=== PATIENT | female | born 1985 | race Caucasian/White ===

== ENCOUNTER 2022-02-13 23:01 | Outpatient (CLI) | payer MEDICAID, SELFPAY | END 2022-02-13 23:02 | disposition home or self-care (01) | LOC: AMB 02-24 11:48 | PROVIDERS: PCP Physician Assistant; Visit Provider Family Medicine | DX: S09.93XA Unspecified injury of face, initial encounter (principal); W01.10XA Fall on same level from slipping, tripping and stumbling with subsequent striking against unspecified object, initial encounter; Y92.85 Railroad track as the place of occurrence of the external cause | CPT/HCPCS: A0425; A0429 ==

== ENCOUNTER 2022-02-13 23:17 | Emergency (ER) | payer MEDICAID, SELFPAY ==
[2022-02-13 23:28] VITALS: BP 128/101; PULSE 103; RESP 18; TEMP 36.9; O2SAT 97; BMI 23.8
--- NOTE | 2022-02-13 23:39 | CRLHL7_ITS ---
For Patients: As a result of the Century Cures Act, medical imaging exams and procedure reports are released immediately into your electronic medical record. You may view this report before your referring provider. If you have questions, please contact your health care provider. INDICATION: Fall hit face, facial head injury TECHNIQUE: CT Head without i.v. contrast. Coronal and sagittal reformats were obtained. Portions of the exam was repeated due to patient motion. COMPARISON: None FINDINGS: The sensitivity and specificity of the exam are moderately limited by artifacts from patient motion. A small portion of the vertex was excluded. CSF space: The ventricles are normal for age. Brain: No evidence of mass, acute infarction or hemorrhage is seen. No mass-effect or midline shift is seen. The brain parenchyma is otherwise normal in appearance with preservation of the feliz-white matter junction. Calvarium: The visualized paranasal sinuses are well aerated. The mastoid air cells are clear. The visualized orbits are grossly unremarkable. The calvarium is unremarkable in appearance with no fractures identified. IMPRESSION: 1. No evidence of acute infarction, intracranial hemorrhage, or mass-effect seen. 2. The sensitivity and specificity of the exam are moderately limited by artifacts from patient motion. A small portion of the vertex was excluded. Please note that all CT scans at this facility use dose modulation, iterative reconstruction, and/or weight-based dosing when appropriate to reduce radiation dose to as low as reasonably achievable. Dictated by: Reagan Durham MD @ 02/14/2022 00:42:51 (Electronically Signed)
--- NOTE | 2022-02-13 23:39 | CRLHL7_ITS ---
For Patients: As a result of the Century Cures Act, medical imaging exams and procedure reports are released immediately into your electronic medical record. You may view this report before your referring provider. If you have questions, please contact your health care provider. INDICATION: Fall hit face, facial injury TECHNIQUE: CT maxillofacial without i.v. contrast. Coronal and sagittal reformats were obtained. COMPARISON: None FINDINGS: The sensitivity and specificity of the exam are severely limited by artifacts from patient motion. Bone: There is a mildly depressed fracture present in the anterior wall of the right maxillary sinus. Bilateral nasal bone fractures are present. Evaluation of the nasal septum and mandible are severely degraded by motion artifacts. Joint: The temporomandibular joints are unremarkable in appearance. Sinus: Mild mucosal thickening is present at the base of the right maxillary sinus. Aplasia of the frontal sinus is noted. Remaining paranasal sinuses are unremarkable. The ostiomeatal units are patent. The nasal turbinates are normal. The nasal septum has mild leftward deviation. Orbit: The visualized orbits are grossly unremarkable. Soft tissue: Moderate swelling and subcutaneous hematoma is present over the right malar region. Diffuse swelling over the nose is noted. IMPRESSIONS: 1. Bilateral nasal bone fractures are present. 2. There is a mildly depressed fracture present in the anterior wall of the right maxillary sinus. 3. The sensitivity and specificity of the exam are severely limited by artifacts from patient motion. Dictated by Reagan Durham MD @ 02/14/2022 12:47:18 AM Please note that all CT scans at this facility use dose modulation, iterative reconstruction, and/or weight-based dosing when appropriate to reduce radiation dose to as low as reasonably achievable. Dictated by: Reagan Durham MD @ 02/14/2022 00:47:54 (Electronically Signed)
--- NOTE | 2022-02-13 23:40 | ED_ITS ---
HPI - Fall General Chief Complaint: Fall/Minor Trauma Stated Complaint: Fall, etoh Time Seen by Provider: 02/13/22 23:31 History of Present Illness HPI Narrative: This 36-year-old female comes in because of an injury to her face that occurred just prior to arrival. She is intoxicated with alcohol and was walking near some railroad tracks. She tripped and fell and hit her face on the railroad rail. She states that she did not have loss of consciousness. She has an abrasion on her left knee. She denies having any other injury. She has significant swelling in bleeding from her nostrils. She also has a nose ring in her right nostril that was damaged with this fall. She was able to remove the nose ring while I initially visited her. Related Data Home Medications Medication Instructions Recorded Confirmed No Known Home Medications 02/13/22 02/13/22 Allergies Allergy/AdvReac Type Severity Reaction Status Date / Time No Known Drug Allergies Allergy Verified 02/13/22 23:46 Review of Systems Status of ROS: Reports: 10 or more systems reviewed and unremarkable except as noted in History and below Narrative: Constitutional: No fevers, no weight gain or loss. Eyes: No discharge. No vision changes. HENT: Facial injury. Cardiovascular: No chest pain, no palpitations. Respiratory: No shortness of breath, no wheezes, no cough. Gastrointestinal: No abdominal pain, no vomiting, no diarrhea. Genitourinary: No dysuria, no hematuria. Musculoskeletal: Normal range of motion. Skin: No rashes, no pruritis. Neurological: No dizziness, weakness, sensory change, speech change. Endo/Heme/Allergies: No bruising or bleeding. No polydipsia. Pysch: no suicidality, no anxiety, no insomnia. Intoxicated with alcohol. All other systems reviewed and are negative. Exam Narrative: Exam Narrative: Constitutional: Well-developed, well-nourished, no acute distress. HEENT: Swelling of the nose with residual bright red blood in both nostrils. A nose ring was damaged and still present in the right nostril. Patient was herself able to remove the nose ring. Normal eye movements. No other sign of injury to her head. No injury to her teeth or inside her mouth. Her teeth line up properly. Neck: Normal range of motion. Nontender. Supple. Heart: Regular. No murmurs. Normal rate. Intact distal pulses. Lungs: Clear to auscultation. No chest discomfort. No wheezes, rhonchi, or rales. Abdomen: Normal bowel sounds. Nontender. No rebound tenderness. Genitalia: Deferred. Back: No midline tenderness. Normal range of motion. Extremities: Normal range of motion. No injury. Skin: Intact. No rash. Warm. No erythema or pallor. Many tattoos on her upper extremities. Neurologic: No altered sensation. No weakness. Alert and oriented. Psychiatric: No suicidality. No anxiety or depression. No insomnia. Nursing notes and vitals signs are reviewed. Const: Vital Signs, click to edit/add: Vital Signs - 24 hr 02/13/22 23:28 Temperature 98.4 F Pulse Rate [Left P ulse Oximeter] 103 H Respiratory Rate 18 Blood Pressure [Ri ght Upper Arm] 128/101 H Pulse Oximetry 97 Oxygen Delivery Me thod Room Air Course Vital Signs Vital signs: Initial Vital Signs Temperature 98.4 F 02/13/22 23:28 Temperature Source Temporal Artery Scan 02/13/22 23:28 Pulse Rate 103 H 02/13/22 23:28 Respiratory Rate 18 02/13/22 23:28 Blood Pressure 128/101 H 02/13/22 23:28 Blood Pressure Mean 110 02/13/22 23:28 Blood Pressure Position Supine 02/13/22 23:28 Pulse Oximetry 97 02/13/22 23:28 Oxygen Delivery Method 02/13/22 23:28 Vital Signs Temperature 98.4 F 02/13/22 23:28 Pulse Rate 103 H 02/13/22 23:28 Respiratory Rate 18 02/13/22 23:28 Blood Pressure 128/101 H 02/13/22 23:28 Pulse Oximetry 97 02/13/22 23:28 Oxygen Delivery Method 02/13/22 23:28 Temperature 98.4 F 02/13/22 23:28 Pulse Rate 103 H 02/13/22 23:28 Respiratory Rate 18 02/13/22 23:28 Blood Pressure 128/101 H 02/13/22 23:28 Pulse Oximetry 97 02/13/22 23:28 Oxygen Delivery Method 02/13/22 23:28 MDM - Fall MDM Narrative Medical decision making narrative: This patient is intoxicated with alcohol and fell when attempting across her or tracks. She fell from a standing height and did have loss of consciousness. She has significant swelling and bleeding from her nose. CT scan of the head and facial bones by my review with radiology report pending shows no sign of intracranial abnormality. She does have nondisplaced or minimally displaced fractures of her nose. Her maxillary sinuses are not filled with fluid or blood. There is no evidence of eye entrapment or inferior orbital injury. Imaging Data CT scan - head: My impression: No acute intracranial abnormality. CT Facial Bones: My impression: Nondisplaced fractures of the nasal bones. Radiology report is pending. Discharge Plan Discharge Clinical Impression: Fracture of nasal bones, Alcohol intoxication, Concussion with loss of consciousness Patient Disposition: Home, Self-Care Condition: Stable Additional Instructions: Use [id number] medicines as needed and directed. Follow-up with [facility] if nasal fracture is not satisfactory in its heel position. Prescriptions: No Action No Known Home Medications Follow Up/Referrals: Milagros Ayoub PA [Primary Care Provider] - Stand Alone Forms: [place] Case Info Instructions
[2022-02-14 00:40] VITALS: BP 118/92; PULSE 80; RESP 18; O2SAT 99
== END 2022-02-14 00:43 | disposition home or self-care (01) ==
PROVIDERS: Emergency Provider Emergency Medicine Emergency Medical Services; PCP Physician Assistant
DX: S02.2XXA Fracture of nasal bones, initial encounter for closed fracture (principal); S06.0X1A Concussion with loss of consciousness of 30 minutes or less, initial encounter; W01.0XXA Fall on same level from slipping, tripping and stumbling without subsequent striking against object, initial encounter; F10.129 Alcohol abuse with intoxication, unspecified
CPT/HCPCS: 70450; 70486; 99284; 99285

== ENCOUNTER 2024-10-18 08:51 | Outpatient (CLI) | payer OTHER, SELFPAY | END 2024-10-18 08:52 | disposition home or self-care (01) | PROVIDERS: PCP Physician Assistant; Visit Provider Obstetrics & Gynecology | DX: N97.9 Female infertility, unspecified (principal); Z31.69 Encounter for other general counseling and advice on procreation | CPT/HCPCS: 83520; 84146; 84270; 84402; 84403; 84443 ==

== ENCOUNTER 2024-10-19 15:48 | Outpatient (CLI) | payer OTHER, SELFPAY ==
--- NOTE | 2024-10-19 16:00 | CRLHL7_ITS ---
For Patients: As a result of the Century Cures Act, medical imaging exams and procedure reports are released immediately into your electronic medical record. You may view this report before your referring provider. If you have questions, please contact your health care provider. INDICATION: Infertility COMPARISON: CT pelvis 03/25/2021 TECHNIQUE: 2D feliz scale and color Doppler images were acquired of the pelvis using a transabdominal and transvaginal approach. FINDINGS: Sonographic images demonstrate a normal size and smooth outer contour of the uterus. Uterus measures 7.3 cm in length by 3.7 cm in AP diameter by 5.1 cm in transverse dimension. The myometrium has a normal uniform echotexture. Incidental cervical nabothian cysts are present. The endometrial lining appears normal and measures 4 mm in composite thickness. The right ovary measures 3.7 x 2.2 x 2.7 cm in size and the left ovary measures 3.0 x 1.7 x 1.8 cm. The ovaries demonstrate normal arterial and venous blood flow on color Doppler analysis. There are no suspicious fluid collections within the cul-de-sac. Dominant follicle in the right ovary measures 2.0 cm. IMPRESSION: Normal endometrium which measures 4 millimeters. No uterine fibroid. Dominant follicle right ovary measures 2.0 cm. Dictated by Solomon Denise MD @ 10/20/2024 10:54:39 AM (Electronically Signed)
== END 2024-10-19 15:49 | disposition home or self-care (01) ==
LOC: US 15:49
PROVIDERS: PCP Physician Assistant; Visit Provider Obstetrics & Gynecology
DX: N97.9 Female infertility, unspecified (principal); N83.01 Follicular cyst of right ovary
CPT/HCPCS: 76830; 76856

== ENCOUNTER 2024-11-14 09:52 | Outpatient (CLI) | payer OTHER, SELFPAY | END 2024-11-14 09:53 | disposition home or self-care (01) | PROVIDERS: PCP Physician Assistant; Visit Provider Obstetrics & Gynecology | DX: O36.80X0 Pregnancy with inconclusive fetal viability, not applicable or unspecified (principal) | CPT/HCPCS: 84702 ==

== ENCOUNTER 2024-11-15 14:40 | Outpatient (CLI) | payer OTHER, SELFPAY ==
--- NOTE | 2024-11-15 14:45 | CRLHL7_ITS ---
For Patients: As a result of the Century Cures Act, medical imaging exams and procedure reports are released immediately into your electronic medical record. You may view this report before your referring provider. If you have questions, please contact your health care provider. CLINICAL HISTORY: Bleeding in the 1st trimester. High HCG. COMPARISON: 10/19/2024 TECHNIQUE: 2D feliz-scale and color Doppler images were acquired of the pelvis using a transvaginal approach. FINDINGS: Gestational sac is present within the endometrial canal which measures 1.3 cm, 6 weeks 1 day. No pole or yolk sac. No subchorionic hemorrhage. Corpus luteal cysts right ovary. Unremarkable left ovary. Cervical nabothian cysts. No pelvic free fluid. No ectopic. IMPRESSION: Intrauterine gestational sac measuring 6 weeks 1 day without pole or yolk sac. Dictated by Solomon Denise MD @ 11/16/2024 6:49:04 AM (Electronically Signed)
== END 2024-11-15 14:41 | disposition home or self-care (01) ==
LOC: US 14:41
PROVIDERS: PCP Physician Assistant; Visit Provider Obstetrics & Gynecology
DX: O20.9 Hemorrhage in early pregnancy, unspecified (principal); Z3A.01 Less than 8 weeks gestation of pregnancy
CPT/HCPCS: 76817; 86850; 86900; 86901

== ENCOUNTER 2024-11-28 07:04 | Outpatient (CLI) | payer OTHER, SELFPAY ==
--- NOTE | 2024-11-28 07:15 | CRLHL7_ITS ---
For Patients: As a result of the Century Cures Act, medical imaging exams and procedure reports are released immediately into your electronic medical record. You may view this report before your referring provider. If you have questions, please contact your health care provider. INDICATION: F/U Dating and Viability COMPARISON: None. TECHNIQUE: Real-time feliz-scale imaging of the pelvis was performed transabdominal and transvaginal. Transvaginal imaging was done to better visualize the pole. FINDINGS: Sonographic imaging demonstrates a single living intrauterine gestation. The embryo demonstrates a regular cardiac rate measuring 154 beats per minute. The embryo`s crown-rump length measurement of 1.2 cm corresponds to a gestational age of 7 weeks 3 days with a sonographic due date of 07/14/2025. There is a normal-appearing yolk sac. There are no gross abnormalities noted within the embryo at this early state of development. The gestational sac has a normal appearance. There is no evidence of a perigestational hemorrhage. The amount of fluid within the sac appears appropriate for gestational age. The cervix is closed. The myometrium appears normal. The ovaries are of normal size. Collapsing right ovarian cyst measures 1.7 x 1.7 x 1.1 cm. Additional collapsing corpus luteal cyst right ovary measures 2.4 x 1.5 x 1.1 cm. There are no suspicious fluid collections noted in the cul-de-sac. IMPRESSION: Single living intrauterine measuring 7 weeks 3 days and sonographic due date of 07/14/2025. Dictated by Solomon Denise MD @ 11/28/2024 8:37:50 AM (Electronically Signed)
== END 2024-11-28 07:05 | disposition home or self-care (01) ==
LOC: US 07:04
PROVIDERS: PCP Physician Assistant; Visit Provider Advanced Practice Midwife
DX: Z34.91 Encounter for supervision of normal pregnancy, unspecified, first trimester (principal); Z3A.01 Less than 8 weeks gestation of pregnancy
CPT/HCPCS: 76817; 83021; 86592; 86703; 86704; 86706; 86762; 86787; 86803; 87086; 87340

== ENCOUNTER 2024-12-26 12:59 | Outpatient (CLI) | payer OTHER, SELFPAY | END 2024-12-26 13:00 | disposition home or self-care (01) | PROVIDERS: PCP Physician Assistant; Visit Provider Physician Assistant | DX: O09.521 Supervision of elderly multigravida, first trimester (principal); Z3A.11 11 weeks gestation of pregnancy | CPT/HCPCS: 87491; 87591 ==

== ENCOUNTER 2025-02-15 10:04 | Outpatient (CLI) | payer OTHER, SELFPAY | END 2025-02-15 10:05 | disposition home or self-care (01) | LOC: US 10:04 | PROVIDERS: PCP Physician Assistant; Visit Provider Physician Assistant | DX: O09.522 Supervision of elderly multigravida, second trimester (principal); Z3A.18 18 weeks gestation of pregnancy | CPT/HCPCS: 76811 ==

== ENCOUNTER 2025-03-08 10:03 | Outpatient (CLI) | payer OTHER, SELFPAY | END 2025-03-08 10:04 | disposition home or self-care (01) | LOC: US 10:04 | PROVIDERS: PCP Student in an Organized Health Care Education/Training Program; Visit Provider Obstetrics & Gynecology | DX: Z36.2 Encounter for other antenatal screening follow-up (principal); O09.522 Supervision of elderly multigravida, second trimester; Z3A.21 21 weeks gestation of pregnancy | CPT/HCPCS: 76816 ==

== ENCOUNTER 2025-04-24 10:10 | Outpatient (CLI) | payer OTHER, SELFPAY | END 2025-04-24 10:11 | disposition home or self-care (01) | LOC: NFLDREF 04-27 08:25 | PROVIDERS: PCP Student in an Organized Health Care Education/Training Program; Referring Provider Student in an Organized Health Care Education/Training Program; Visit Provider Obstetrics & Gynecology | DX: Z34.93 Encounter for supervision of normal pregnancy, unspecified, third trimester (principal) | CPT/HCPCS: 86592 ==